=== PATIENT | male | born 1965 | race Caucasian/White ===

== ENCOUNTER 2018-01-17 10:43 | Inpatient (IN) | payer SELFPAY ==
[~2018-01-17] VITALS: Ht 160 cm; Wt 134.4 kg
[2018-01-17 10:47] VITALS: BP 130/62
[2018-01-17 11:41] LABS: BASO # 0.1 10*3/uL (0.0-0.1); BASO % 0.3 % (0.0-1.0); EOS % 0.3 % (1.0-4.0); HEMATOCRIT 41.8 % (42.0-52.0); HEMOGLOBIN 13.5 g/dl (14.0-18.0); LYMPH # 1.3 10*3/uL (1.3-4.4); LYMPH % 8.5 % (27.0-41.0); MEAN CELL VOLUME 90.7 fl (80.0-94.0); MEAN CORPUSCULAR HGB 29.3 pg (27.0-31.0); MEAN CORPUSCULAR HGB CONC 32.3 g/dl (33.0-37.0); MEAN PLATELET VOLUME 9.2 fl (9.6-12.3); MONO # 1.1 10*3/uL (0.1-1.0); NEUT # 12.5 10*3/uL (2.3-7.9); NEUT % 83.2 % (47.0-73.0); PLATELET COUNT AUTOMATED 235 10*3/uL (130-400); RED BLOOD COUNT 4.61 10*6/uL (4.50-5.90); RED CELL DISTRI WIDTH 13.2 % (0-14.5)
[2018-01-17 11:50] LABS: ACT PARTIAL THROMBO TIME 21.5 SECONDS (20.8-31.5)
[2018-01-17 11:56] LABS: ALBUMIN 3.4 gm/dl (3.1-4.5); ALKALINE PHOSPHATASE 93 U/L (45-117); BUN 13 mg/dl (7-24); CHLORIDE 104 mmol/L (98-107); CREATININE 0.92 mg/dL (0.70-1.30); LIPASE 191 U/L (73-393); POTASSIUM 3.7 mmol/L (3.5-5.1); SGOT/AST 14 IU/L (3-35); SGPT/ALT 24 U/L (12-78); SODIUM 137 mmol/L (136-145); TOTAL PROTEIN 7.2 gm/dL (6.4-8.2)
[2018-01-17 12:00] VITALS: BP 138/71
[2018-01-17 12:24] LABS: BILIRUBIN NEGATIVE (NEGATIVE); BLOOD TRACE-INTACT (NEGATIVE); CLARITY CLEAR (CLEAR); COLOR YELLOW (YELLOW); GLUCOSE NEGATIVE (NEGATIVE); KETONE NEGATIVE (NEGATIVE); LEUKO ESTERASE NEGATIVE (NEGATIVE); NITRITE NEGATIVE (NEGATIVE); UROBILINOGEN 0.2 E.U./dl (0.2-1.0)
[2018-01-17 12:55] VITALS: BP 128/68
[2018-01-17 12:55] LABS: BACTERIA TRACE; MUCOUS 1+
[2018-01-17 14:47] VITALS: BP 108/50
[2018-01-17 16:00] VITALS: BP 113/61
[2018-01-17 20:00] VITALS: BP 131/75
[2018-01-18] VITALS: BP 126/72
[2018-01-18 06:36] LABS: BASO % 0.4 % (0.0-1.0); EOS # 0.2 10*3/uL (0.0-0.4); HEMATOCRIT 37.5 % (42.0-52.0); HEMOGLOBIN 12.1 g/dl (14.0-18.0); LYMPH # 1.7 10*3/uL (1.3-4.4); MEAN CELL VOLUME 90.6 fl (80.0-94.0); MEAN CORPUSCULAR HGB 29.2 pg (27.0-31.0); MEAN CORPUSCULAR HGB CONC 32.3 g/dl (33.0-37.0); MEAN PLATELET VOLUME 9.3 fl (9.6-12.3); MONO # 1.1 10*3/uL (0.1-1.0); MONO % 10.7 % (3.0-9.0); NEUT # 7.4 10*3/uL (2.3-7.9); NEUT % 70.2 % (47.0-73.0); PLATELET COUNT AUTOMATED 204 10*3/uL (130-400); RED BLOOD COUNT 4.14 10*6/uL (4.50-5.90); RED CELL DISTRI WIDTH 13.2 % (0-14.5); WHITE BLOOD COUNT 10.5 10*3/uL (4.8-10.8)
[2018-01-18 06:42] LABS: ACT PARTIAL THROMBO TIME 22.3 SECONDS (20.8-31.5)
[2018-01-18 06:50] LABS: ALBUMIN 2.8 gm/dl (3.1-4.5); ALKALINE PHOSPHATASE 79 U/L (45-117); BUN 11 mg/dl (7-24); CHLORIDE 109 mmol/L (98-107); CHOLESTEROL 122 mg/dL (<200); CREATININE 0.91 mg/dL (0.70-1.30); HDL CHOLESTEROL 37 mg/dl (40-60); SGOT/AST 14 IU/L (3-35); SGPT/ALT 24 U/L (12-78); SODIUM 142 mmol/L (136-145)
[2018-01-18 06:55] LABS: FREE T4 1.04 ng/dl (0.76-1.46); LDL CHOLESTEROL 64 mg/dL (9-159); PHOSPHOROUS 3.4 mg/dL (2.5-4.9); THYROID STIM HORMONE (HS) 0.753 uIU/ml (0.358-4.75); TOTAL PROTEIN 6.4 gm/dL (6.4-8.2); TRIGLYCERIDES 103 mg/dl (<150); VLDL CHOLESTEROL 21 mg/dL (6-40)
[2018-01-18 08:48] LABS: VITAMIN D, 25-HYDROXY 12.8 ng/mL (30-100)
[2018-01-18 09:00] VITALS: BP 114/56
[2018-01-18 12:00] VITALS: BP 141/72
[2018-01-18 16:00] VITALS: BP 147/62
[2018-01-18 20:00] VITALS: BP 122/56
[2018-01-19] VITALS: BP 130/74
[2018-01-19 08:00] VITALS: BP 119/83
[2018-01-19 12:00] VITALS: BP 131/62
[2018-01-19 16:00] VITALS: BP 157/84
[2018-01-19 20:00] VITALS: BP 115/54; BP 194/92
[2018-01-20] VITALS: BP 131/55
[2018-01-20 07:14] LABS: BASO % 0.3 % (0.0-1.0); EOS # 0.5 10*3/uL (0.0-0.4); EOS % 3.9 % (1.0-4.0); HEMATOCRIT 37.2 % (42.0-52.0); HEMOGLOBIN 12.1 g/dl (14.0-18.0); LYMPH # 2.5 10*3/uL (1.3-4.4); LYMPH % 21.3 % (27.0-41.0); MEAN CELL VOLUME 90.7 fl (80.0-94.0); MEAN CORPUSCULAR HGB 29.5 pg (27.0-31.0); MEAN CORPUSCULAR HGB CONC 32.5 g/dl (33.0-37.0); MEAN PLATELET VOLUME 9.4 fl (9.6-12.3); MONO # 1.3 10*3/uL (0.1-1.0); MONO % 10.8 % (3.0-9.0); NEUT # 7.4 10*3/uL (2.3-7.9); NEUT % 63.1 % (47.0-73.0); PLATELET COUNT AUTOMATED 215 10*3/uL (130-400); RED CELL DISTRI WIDTH 13.1 % (0-14.5); WHITE BLOOD COUNT 11.7 10*3/uL (4.8-10.8)
[2018-01-20 07:46] LABS: ALBUMIN 2.9 gm/dl (3.1-4.5); ALKALINE PHOSPHATASE 77 U/L (45-117); BUN 8 mg/dl (7-24); CHLORIDE 109 mmol/L (98-107); CREATININE 0.88 mg/dL (0.70-1.30); POTASSIUM 3.9 mmol/L (3.5-5.1); SGOT/AST 15 IU/L (3-35); SGPT/ALT 26 U/L (12-78); SODIUM 143 mmol/L (136-145); TOTAL PROTEIN 6.8 gm/dL (6.4-8.2)
[2018-01-20 08:00] VITALS: BP 125/65
[2018-01-20 12:00] VITALS: BP 142/86
[2018-01-20 16:00] VITALS: BP 134/72
[2018-01-20 20:00] VITALS: BP 115/39
[2018-01-21] VITALS: BP 124/59
[2018-01-21 08:00] VITALS: BP 119/63
[2018-01-21 12:00] VITALS: BP 108/49
[2018-01-21 13:51] LABS: BASO % 0.3 % (0.0-1.0); EOS # 0.4 10*3/uL (0.0-0.4); EOS % 4.1 % (1.0-4.0); HEMOGLOBIN 13.8 g/dl (14.0-18.0); LYMPH % 19.1 % (27.0-41.0); MEAN CELL VOLUME 91.4 fl (80.0-94.0); MEAN CORPUSCULAR HGB 28.9 pg (27.0-31.0); MEAN CORPUSCULAR HGB CONC 31.7 g/dl (33.0-37.0); MEAN PLATELET VOLUME 9.2 fl (9.6-12.3); MONO # 0.9 10*3/uL (0.1-1.0); MONO % 8.7 % (3.0-9.0); PLATELET COUNT AUTOMATED 255 10*3/uL (130-400); RED BLOOD COUNT 4.77 10*6/uL (4.50-5.90); WHITE BLOOD COUNT 10.4 10*3/uL (4.8-10.8)
[2018-01-21 13:56] LABS: HEMATOCRIT 43.6 % (42.0-52.0)
[2018-01-21 14:14] LABS: CHLORIDE 105 mmol/L (98-107); POTASSIUM 3.9 mmol/L (3.5-5.1); SODIUM 143 mmol/L (136-145)
[2018-01-21 14:35] LABS: ALBUMIN 3.1 gm/dl (3.1-4.5); ALKALINE PHOSPHATASE 88 U/L (45-117); BUN 11 mg/dl (7-24); CREATININE 1.04 mg/dL (0.70-1.30); SGOT/AST 21 IU/L (3-35); SGPT/ALT 32 U/L (12-78); TOTAL PROTEIN 7.6 gm/dL (6.4-8.2)
[2018-01-21 16:00] VITALS: BP 129/70
[2018-01-21 20:00] VITALS: BP 131/57
[2018-01-22] VITALS: BP 126/74; BP 141/79
[2018-01-22 08:00] VITALS: BP 124/66
[2018-01-22 08:33] LABS: BASO % 0.4 % (0.0-1.0); EOS # 0.5 10*3/uL (0.0-0.4); EOS % 4.4 % (1.0-4.0); HEMATOCRIT 39.7 % (42.0-52.0); HEMOGLOBIN 12.9 g/dl (14.0-18.0); LYMPH # 1.9 10*3/uL (1.3-4.4); LYMPH % 16.9 % (27.0-41.0); MEAN CORPUSCULAR HGB 29.3 pg (27.0-31.0); MEAN CORPUSCULAR HGB CONC 32.5 g/dl (33.0-37.0); MEAN PLATELET VOLUME 9.3 fl (9.6-12.3); MONO % 8.7 % (3.0-9.0); NEUT # 7.6 10*3/uL (2.3-7.9); NEUT % 68.7 % (47.0-73.0); PLATELET COUNT AUTOMATED 226 10*3/uL (130-400); RED BLOOD COUNT 4.41 10*6/uL (4.50-5.90); RED CELL DISTRI WIDTH 13.2 % (0-14.5)
[2018-01-22 09:08] LABS: BUN 11 mg/dl (7-24); CHLORIDE 106 mmol/L (98-107); CREATININE 1.09 mg/dL (0.70-1.30); PHOSPHOROUS 4.2 mg/dL (2.5-4.9); POTASSIUM 3.7 mmol/L (3.5-5.1); SODIUM 143 mmol/L (136-145)
[2018-01-22 12:00] VITALS: BP 138/61
[2018-01-22] MEDS ORDERED: CEFTRIAXON2 GM/50 ML IV (12:51)
[2018-01-22] MEDS ORDERED: B12,B-12,B 12500 MC1 PO (12:51)
[2018-01-22] MEDS ORDERED: VITAMIN D5000 UNI1 PO (12:51)
[2018-01-24] MEDS ORDERED: MEN'S ONE DAIL1 EACH PO (10:11)
== END 2018-01-22 14:46 | disposition home or self-care (01) | DRG 603 ==
LOC: ED 10:43 → 4E 13:18 → EDHOLD 13:18 → 4E 13:48
PROVIDERS: Family Medicine; Internal Medicine Nephrology; Physician Assistant
PROC: 5A09357 Assistance with Respiratory Ventilation, Less than 24 Consecutive Hours, Continuous Positive Airway Pressure (ICD-10-PCS; principal; 2018-01-20)
DX: L03.115 Cellulitis of right lower limb (principal); E66.01 Morbid (severe) obesity due to excess calories; Z68.43 Body mass index [BMI] 50.0-59.9, adult; R31.9 Hematuria, unspecified; G47.30 Sleep apnea, unspecified; B95.61 Methicillin susceptible Staphylococcus aureus infection as the cause of diseases classified elsewhere; R21 Rash and other nonspecific skin eruption; F17.200 Nicotine dependence, unspecified, uncomplicated; D64.9 Anemia, unspecified; Z71.6 Tobacco abuse counseling; Z82.49 Family history of ischemic heart disease and other diseases of the circulatory system

== ENCOUNTER → 2018-07-30 | Outpatient (CLI) | payer OTHER ==
[~2018-07-30] MED LIST: B12,B-12,B 12500 MC1 PO; CEFTRIAXON2 GM/50 ML IV; MEN'S ONE DAIL1 EACH PO; VITAMIN D5000 UNI1 PO
== END | disposition home or self-care (01) ==
DX: I37.1 Nonrheumatic pulmonary valve insufficiency (principal); G47.33 Obstructive sleep apnea (adult) (pediatric); E66.9 Obesity, unspecified